=== PATIENT | female | born 1995 | race Caucasian/White ===

== ENCOUNTER → 2022-10-16 | Outpatient (CLI) | payer BC ==
[2022-10-16 11:16] LABS: Basophils # (auto) 0 10 ^3/uL (0-0.2); Basophils % (auto) 0.7 % (0.0-2.0); Eosinophils # (auto) 0.1 10 ^3/uL (0-0.8); Hematocrit 40.7 % (36.0-46.0); Hemoglobin 14.3 g/dL (12.2-16.2); Lymphocytes # (auto) 2.3 10 ^3/uL (0.4-5.4); Mean Corpuscular Hemoglobin 31.5 pg (28.0-32.0); Mean Corpuscular Hgb Conc. 35.1 g/dL (32.0-36.0); Mean Corpuscular Volume 89.6 fL (80.0-100.0); Monocytes # (auto) 0.3 10 ^3/uL (0-1.3); Monocytes % (auto) 6.1 % (0.0-12.0); Neutrophils # (auto) 2.4 10 ^3/uL (1.6-8.6); Neutrophils % (auto) 46.2 % (37.0-80.0); Nucleated Red Blood Cells % 0.1 %; Red Blood Cells 4.54 10^6/uL (4.0-5.20); White Blood Cell 5.1 10^3/uL (4.4-10.8)
[2022-10-16 11:25] LABS: Urine Bacteria FEW /hpf (None Seen); Urine Blood Negative /uL (Negative); Urine Mucus FEW (None Seen); Urine Specific Gravity 1.025 (1.001-1.035); Urine WBC 3 /hpf (0 - 5)
[2022-10-16 11:53] LABS: Potassium 4.2 mmol/L (3.5-5.1)
[2022-10-16 12:02] LABS: Follicle Stimulating Hormone 7.76 IU/L (SEE BELOW); Leuteinizing Hormone 5.8 IU/L
[2022-10-16 12:09] LABS: Free T4 (Free Thyroxine) 1.48 ng/dL (0.89-1.76)
[2022-10-16 12:10] LABS: Albumin 4.3 g/dL (3.4-5.0); BUN/Creatinine Ratio 15.1; Bilirubin, Total 0.8 mg/dL (0.2-1.0); Calcium 8.9 mg/dL (8.5-10.1); Total Protein 7.3 g/dL (6.4-8.2)
== END | disposition home or self-care (01) ==
LOC: LAB 10:30
PROVIDERS: ATTEND Student in an Organized Health Care Education/Training Program
DX: N39.0 Urinary tract infection, site not specified (principal); R73.9 Hyperglycemia, unspecified; N92.6 Irregular menstruation, unspecified; R03.0 Elevated blood-pressure reading, without diagnosis of hypertension
CPT/HCPCS: 36415; 80053; 80061; 81001; 82670; 83001; 83002; 83036; 84439; 84443; 85025; 87086

== ENCOUNTER → 2023-03-06 | Outpatient (CLI) | payer BC | END | disposition home or self-care (01) | LOC: LAB 11:56 | PROVIDERS: ATTEND Student in an Organized Health Care Education/Training Program | DX: Z11.1 Encounter for screening for respiratory tuberculosis (principal); Z23 Encounter for immunization | CPT/HCPCS: 36415; 86706; 86735; 86762; 86765; 86787 ==

== ENCOUNTER 2023-03-09 06:20 | Day surgery (SDC) | payer BC ==
[2023-03-06 12:24] LABS: Basophils # (auto) 0.1 10 ^3/uL (0-0.2); Basophils % (auto) 0.7 % (0.0-2.0); Eosinophils # (auto) 0.1 10 ^3/uL (0-0.8); Eosinophils % (auto) 1.3 % (0.0-7.0); Hematocrit 40.2 % (36.0-46.0); Hemoglobin 13.2 g/dL (12.2-16.2); Lymphocytes # (auto) 2.6 10 ^3/uL (0.4-5.4); Lymphocytes % (auto) 26.9 % (10.0-50.0); Mean Corpuscular Hgb Conc. 32.9 g/dL (32.0-36.0); Mean Corpuscular Volume 91.1 fL (80.0-100.0); Monocytes # (auto) 0.7 10 ^3/uL (0-1.3); Monocytes % (auto) 6.9 % (0.0-12.0); Neutrophils # (auto) 6.2 10 ^3/uL (1.6-8.6); Neutrophils % (auto) 64.2 % (37.0-80.0); Nucleated Red Blood Cells % 0.2 %; Red Blood Cells 4.41 10^6/uL (4.0-5.20); Red Cell Distribution Width 12.7 % (11.8-14.3); White Blood Cell 9.7 10^3/uL (4.4-10.8)
[2023-03-06 12:53] LABS: Urine Bacteria NONE SEEN /hpf (None Seen); Urine Blood Negative /uL (Negative); Urine Mucus FEW (None Seen); Urine Specific Gravity 1.018 (1.001-1.035); Urine WBC 1 /hpf (0 - 5)
[2023-03-06 12:56] LABS: INR 1.06 (0.9-1.15); Partial Thromboplastin Time 26.1 SEC (24.5-34.5)
[2023-03-06 13:34] LABS: BUN/Creatinine Ratio 19.2 (10.0-20.0); Calcium 9.2 mg/dL (8.5-10.1)
[2023-03-06 13:37] LABS: Total Protein 7.2 g/dL (6.4-8.2)
[~2023-03-09] VITALS: Ht 162.6 cm; Wt 52.2 kg
[~2023-03-09 06:20] MED LIST: ceFAZolin 1GM/50ML 100 ML IV ONE
[2023-03-09] MEDS ORDERED: LIDOCAINE W/ EPINEPHRINE 2% INJ 20ML VIAL ONE (06:46)
[2023-03-09] MEDS ORDERED: BUPIVACAINE 0.25% INJ 50ML VIAL ONE (06:47)
[2023-03-09] MEDS ORDERED: ZOFR4T PO (07:03)
[2023-03-09] MEDS ORDERED: NEOSTIGMINE 1 MG/ML INJ (10mg/10ML VIAL) ONE (07:03)
[2023-03-09] MEDS ORDERED: ONDANSETRON HCL 4 MG/2 ML VIAL ONE (07:03)
[2023-03-09] MEDS ORDERED: fentaNYL CITRATE 100 MCG/2 ML VL ONE (07:03)
[2023-03-09] MEDS ORDERED: ROCURONIUM 10MG/ML 10ML VIAL IV ONE ×2 (07:03→07:05)
[2023-03-09] MEDS ORDERED: MEPERIDINE HCL (50 MG/ML) 1 ML VIAL ONE (07:03)
[2023-03-09] MEDS ORDERED: DexAMETHasone SOD PHOS 10MG/1ML VIAL INJ ONE (07:03)
[2023-03-09] MEDS ORDERED: MIDAZOLAM HCL 2MG/2ML 2ml VIAL (1mg/ml) ONE (07:03)
[2023-03-09] MEDS ORDERED: HYDR-4902 PO (07:03)
[2023-03-09] MEDS ORDERED: SODIUM CHLORIDE LOCK 20 ML ONE (07:03)
[2023-03-09] MEDS ORDERED: PROPOFOL 10 MG/ML 20 ML IV ONE (07:03)
[2023-03-09] MEDS ORDERED: DOXAPRAM HCL 20 MG/ML 20ML VIAL INJ IV ONE (07:05)
[2023-03-09] MEDS ORDERED: SUCCINYLCHOLINE CHLORIDE 20 MG/ML 10ML VIAL IV ONE (07:05)
[2023-03-09] MEDS ORDERED: METOCLOPRAMIDE HCL 5MG/ml INJ 2ml VIAL IV PRN (07:45)
[2023-03-09] MEDS ORDERED: HYDROmorphone HCL 2 MG/ML VL/or syr IV PRN (07:45)
[2023-03-09] MEDS ORDERED: MORPHINE SULFATE INJ 2 MG/ml SYRG IV PRN (07:45)
[2023-03-09 08:11] VITALS: TEMP 97.6; O2SAT 100
[2023-03-09] MEDS ORDERED: ONDANSETRON HCL 4 MG/2 ML VIAL IV PRN (08:15)
[2023-03-09] MEDS ORDERED: LACTATED RINGER'S 1,000 ML IV SCH (08:15)
[2023-03-09] MEDS: HYDROmorphone HCL 2 MG/ML VL/or syr IV PRN ×4 (08:26→09:11)
[2023-03-09 09:25] VITALS: BP 119/77; PULSE 62; RESP 12; O2SAT 100
== END 2023-03-09 09:27 | disposition home or self-care (01) ==
LOC: SUR 06:20
PROVIDERS: ATTEND Obstetrics & Gynecology
DX: Z30.2 Encounter for sterilization (principal)
CPT/HCPCS: 36415; 58671; 80053; 81001; 81025; 84702; 85025; 85610; 85730; 86850; 86900; 86901; J0330; J0690; J1100; J1170; J2175; J2250; J2405; J2704; J3010; J3490

== ENCOUNTER → 2023-09-20 | Outpatient (CLI) | payer BC ==
[~2023-09-20] MED LIST changes: +HYDR-4902 PO; +ZOFR4T PO; -ceFAZolin 1GM/50ML 100 ML IV ONE
[2023-09-20 06:21] LABS: Urine Epithelial Cast None Seen /hpf (<5)
[2023-09-20 06:34] LABS: Basophils # (auto) 0 10 ^3/uL (0-0.2); Basophils % (auto) 0.4 % (0.0-2.0); Eosinophils # (auto) 0.1 10 ^3/uL (0-0.8); Eosinophils % (auto) 1.9 % (0.0-7.0); Hematocrit 42.3 % (36.0-46.0); Hemoglobin 14.2 g/dL (12.2-16.2); Lymphocytes # (auto) 2.2 10 ^3/uL (0.4-5.4); Mean Corpuscular Hemoglobin 30.5 pg (28.0-32.0); Mean Corpuscular Hgb Conc. 33.5 g/dL (32.0-36.0); Mean Corpuscular Volume 91.1 fL (80.0-100.0); Monocytes # (auto) 0.4 10 ^3/uL (0-1.3); Monocytes % (auto) 5.9 % (0.0-12.0); Neutrophils # (auto) 4.8 10 ^3/uL (1.6-8.6); Neutrophils % (auto) 62.8 % (37.0-80.0); Red Blood Cells 4.65 10^6/uL (4.0-5.20); Red Cell Distribution Width 13.1 % (11.8-14.3); White Blood Cell 7.6 10^3/uL (4.4-10.8)
[2023-09-20 06:36] LABS: Urine Bacteria NONE SEEN /hpf (None Seen); Urine Blood Negative /uL (Negative); Urine Clarity HAZY (Clear); Urine Color Yellow (Yellow); Urine Hyaline Cast FEW /lpf (0 - 2); Urine Mucus MANY (None Seen); Urine Protein, UAD TRACE (Negative); Urine Specific Gravity 1.029 (1.001-1.035); Urine WBC 3 /hpf (0 - 5); Urine pH 5.5 (5.0-8.0)
[2023-09-20 07:29] LABS: Alanine Aminotransferase 12 U/L (7-40); Albumin 4.8 g/dL (3.2-4.8); Alkaline Phosphatase 57 U/L (46-116); Anion Gap 5 (5-15); Aspartate Aminotransferase 11 U/L (13-40); BUN/Creatinine Ratio 11.8 (10.0-20.0); Blood Urea Nitrogen 8 mg/dL (9-23); Calcium 9.7 mg/dL (8.5-10.1); Carbon Dioxide 25 mmol/L (20-30); Chloride 110 mmol/L (98-107); Cholesterol 146 mg/dL (< 200); Glucose 90 mg/dL (74-106); LDL Cholesterol 93 mg/dL (< 100); Potassium 4.1 mmol/L (3.5-5.1); Sodium 140 mmol/L (136-145); Triglycerides 85 mg/dL (< 150)
[2023-09-20 07:30] LABS: Bilirubin, Total 0.8 mg/dL (0.2-1.0); HDL Cholesterol 44 mg/dL (40-59); Total Protein 7.2 g/dL (5.7-8.2)
[2023-09-20 07:32] LABS: Folate (Folic Acid) 12.98 ng/mL (>5.38)
[2023-09-20 07:33] LABS: Follicle Stimulating Hormone 7.52 IU/L (SEE BELOW)
[2023-09-20 07:39] LABS: Uric Acid 3.4 mg/dL (3.1-7.8)
[2023-09-20 07:41] LABS: Magnesium 1.9 mg/dL (1.6-2.6)
[2023-09-21 08:06] LABS: Estradiol 56.1 pg/mL (.)
[2023-09-21 10:07] LABS: Anti-Nuclear Antibody Direct Negative (Negative)
== END | disposition home or self-care (01) ==
LOC: LAB 06:05
PROVIDERS: ATTEND Internal Medicine
DX: E61.2 Magnesium deficiency (principal); E79.0 Hyperuricemia without signs of inflammatory arthritis and tophaceous disease; R82.998 Other abnormal findings in urine; R94.6 Abnormal results of thyroid function studies; E55.9 Vitamin D deficiency, unspecified; D51.9 Vitamin B12 deficiency anemia, unspecified; R82.79 Other abnormal findings on microbiological examination of urine; R78.89 Finding of other specified substances, not normally found in blood; E78.49 Other hyperlipidemia; R68.89 Other general symptoms and signs; R73.09 Other abnormal glucose
CPT/HCPCS: 36415; 80053; 80061; 81001; 82306; 82607; 82670; 82746; 83001; 83036; 83735; 84443; 84550; 85025; 86038; 87086

== ENCOUNTER → 2024-11-26 | Outpatient (CLI) | payer BC ==
[2024-11-26 07:35] LABS: Basophils # (auto) 0 10 ^3/uL (0-0.2); Basophils % (auto) 0.3 % (0.0-2.0); Eosinophils # (auto) 0.1 10 ^3/uL (0-0.8); Eosinophils % (auto) 1.5 % (0.0-7.0); Hematocrit 39.1 % (36.0-46.0); Hemoglobin 13.8 g/dL (12.2-16.2); Lymphocytes # (auto) 2.3 10 ^3/uL (0.4-5.4); Lymphocytes % (auto) 30.3 % (10.0-50.0); Mean Corpuscular Hemoglobin 31.6 pg (28.0-32.0); Mean Corpuscular Hgb Conc. 35.2 g/dL (32.0-36.0); Mean Corpuscular Volume 89.7 fL (80.0-100.0); Monocytes # (auto) 0.4 10 ^3/uL (0-1.3); Monocytes % (auto) 4.7 % (0.0-12.0); Neutrophils # (auto) 4.9 10 ^3/uL (1.6-8.6); Neutrophils % (auto) 63.2 % (37.0-80.0); Platelet Count (auto) 198 10^3/uL (140-450); Red Blood Cells 4.36 10^6/uL (4.0-5.20); Red Cell Distribution Width 12.3 % (11.8-14.3); White Blood Cell 7.7 10^3/uL (4.4-10.8)
[2024-11-26 08:16] LABS: Alkaline Phosphatase 56 U/L (46-116); Anion Gap 8 (5-15); Blood Urea Nitrogen 12 mg/dL (9-23); Calcium 9.8 mg/dL (8.7-10.4); Carbon Dioxide 25 mmol/L (20-31); Chloride 106 mmol/L (98-107); Glucose 90 mg/dL (74-106); LDL Cholesterol 82 mg/dL (< 100); Potassium 4.1 mmol/L (3.5-5.1); Sodium 139 mmol/L (136-145); Total Protein 7.1 g/dL (5.7-8.2); Triglycerides 61 mg/dL (< 150)
[2024-11-26 08:17] LABS: Bilirubin, Total 0.6 mg/dL (0.2-1.0); Cholesterol 135 mg/dL (< 200); HDL Cholesterol 45 mg/dL (40-59)
[2024-11-26 08:21] LABS: Alanine Aminotransferase < 9 U/L (7-40); Albumin 4.9 g/dL (3.2-4.8); Aspartate Aminotransferase 8 U/L (13-40)
[2024-11-26 09:21] LABS: % Iron Saturation 23.7 % (15-50)
[2024-11-26 09:27] LABS: Follicle Stimulating Hormone 5.06 IU/L (SEE BELOW)
[2024-11-26 09:28] LABS: Free T3 3.69 pg/mL (2.3-4.2); Free T4 (Free Thyroxine) 1.32 ng/dL (0.89-1.76); T3 Total 1.23 ng/mL (0.60-1.81)
[2024-11-26 09:29] LABS: Ferritin 36.3 ng/mL (10-291); Leuteinizing Hormone 8.7 IU/L
[2024-11-26 09:30] LABS: Folate (Folic Acid) 8.29 ng/mL (>5.38)
[2024-11-27 08:07] LABS: Estradiol 68.8 pg/mL (.); Thyroid Peroxidase (TPO) Ab 13 IU/mL (0-34); Thyroxine (T4) 8.6 ug/dL (4.5-12.0)
[2024-11-27 20:06] LABS: Thyroglobulin Antibody <1.0 IU/mL (0.0-0.9)
== END | disposition home or self-care (01) ==
LOC: LAB 06:49
PROVIDERS: ATTEND Nurse Practitioner Women's Health
DX: E28.2 Polycystic ovarian syndrome (principal); Z87.42 Personal history of other diseases of the female genital tract
CPT/HCPCS: 36415; 80053; 80061; 82306; 82607; 82670; 82728; 82746; 83001; 83002; 83036; 83540; 83550; 84403; 84436; 84439; 84443; 84480; 84481; 85025; 86376; 86800

== ENCOUNTER → 2024-12-16 | Outpatient (CLI) | payer BC ==
[2024-12-16 10:39] LABS: Basophils # (auto) 0.1 10 ^3/uL (0-0.2); Basophils % (auto) 0.8 % (0.0-2.0); Eosinophils # (auto) 0.2 10 ^3/uL (0-0.8); Eosinophils % (auto) 2.9 % (0.0-7.0); Hematocrit 37.3 % (36.0-46.0); Hemoglobin 13.1 g/dL (12.2-16.2); Lymphocytes # (auto) 1.5 10 ^3/uL (0.4-5.4); Lymphocytes % (auto) 23.2 % (10.0-50.0); Mean Corpuscular Volume 88.5 fL (80.0-100.0); Monocytes # (auto) 0.5 10 ^3/uL (0-1.3); Monocytes % (auto) 8.1 % (0.0-12.0); Neutrophils # (auto) 4.3 10 ^3/uL (1.6-8.6); Platelet Count (auto) 235 10^3/uL (140-450); Red Blood Cells 4.22 10^6/uL (4.0-5.20); Red Cell Distribution Width 12.9 % (11.8-14.3); White Blood Cell 6.6 10^3/uL (4.4-10.8)
[2024-12-16 10:56] LABS: Albumin 4.6 g/dL (3.2-4.8); Alkaline Phosphatase 61 U/L (46-116); Anion Gap 8 (5-15); Aspartate Aminotransferase 27 U/L (13-40); BUN/Creatinine Ratio 20.4 (10.0-20.0); Blood Urea Nitrogen 11 mg/dL (9-23); Calcium 9.5 mg/dL (8.7-10.4); Carbon Dioxide 25 mmol/L (20-31); Chloride 106 mmol/L (98-107); Glucose 90 mg/dL (74-106); LDL Cholesterol 81 mg/dL (< 100); Potassium 4.3 mmol/L (3.5-5.1); Sodium 139 mmol/L (136-145); Triglycerides 93 mg/dL (< 150)
[2024-12-16 10:57] LABS: Alanine Aminotransferase 43 U/L (7-40); Bilirubin, Total 0.8 mg/dL (0.2-1.0); Cholesterol 130 mg/dL (< 200); HDL Cholesterol 34 mg/dL (40-59)
[2024-12-17 08:07] LABS: Rheumatoid Arthritis Factor <10.0 IU/mL (<14.0)
== END | disposition home or self-care (01) ==
LOC: LAB 10:08
PROVIDERS: ATTEND Nurse Practitioner Family
DX: Z00.01 Encounter for general adult medical examination with abnormal findings (principal); I10 Essential (primary) hypertension; J30.2 Other seasonal allergic rhinitis
CPT/HCPCS: 36415; 80053; 80061; 82785; 84443; 85025; 86003; 86431